=== PATIENT | male | born 1990 | race Caucasian/White ===

== ENCOUNTER 2018-04-16 02:30 | Emergency (ER) | payer SELFPAY ==
[~2018-04-16] VITALS: Ht 167.6 cm; Wt 79.4 kg
--- NOTE | 2018-04-16 02:30 | NUR ---
PT HAIR ALS. TAKEN TO BED 10
[2018-04-16 02:42] VITALS: BP 117/80
--- NOTE | 2018-04-16 02:47 | NUR ---
PT TO ED BIBA FOR ETOH INTOXICATION. UPON ARRIVAL PT COMABTIVE AND AGITATED. NO TRAUMA OR INJURIES NOTED. PT PLACED INTO BED, PENDING MD GAMEZ. SECURITY AT BEDSIDE.
[2018-04-16] MEDS ORDERED: diphenhydrAMINE 50 MG/ML VIAL IM ONE (02:50)
[2018-04-16] MEDS ORDERED: LORazepam 2 MG/ML VIAL IM ONE (02:50)
[2018-04-16] MEDS ORDERED: HALOPERIDOL IM 5 MG/ML VIAL IM ONE (02:50)
--- NOTE | 2018-04-16 02:52 | NUR ---
Dr. Sargent evaluating patient at bedside.
[2018-04-16] MEDS ORDERED: NACL 0.9% 1,000 ML IV ONE ×2 (03:05→03:55)
--- NOTE | 2018-04-16 03:12 | NUR ---
EKG PERFORMED AT BEDSIDE
[2018-04-16 03:20] LABS: BASOPHILS % (AUTO) 0.5 % (0.0-2.0); EOSINOPHILS % (AUTO) 0.2 % (0.0-4.0); HEMATOCRIT 47.4 % (36-52); HEMOGLOBIN 15.8 g/dL (12.0-18.0); LYMPHOCYTES # (AUTO) 2.2 K/uL (2.0-11.5); LYMPHOCYTES % (AUTO) 26.7 % (20.5-51.1); MEAN CORPUSCULAR HEMOGLOBIN 31 pg (27-31); MEAN CORPUSCULAR HGB CONC 33 g/dL (33-37); MEAN CORPUSCULAR VOLUME 92.8 fL (80-94); MONOCYTES # (AUTO) 0.3 K/uL (0.8-1.0); NEUTROPHILS # (AUTO) 5.8 K/uL (1.8-7.7); NEUTROPHILS % (AUTO) 68.6 % (42.2-75.2); PLATELET COUNT (AUTO) 273 K/uL (140-450); RED CELL DISTRIBUTION WIDTH 13.1 % (11.6-13.7); WHITE BLOOD COUNT (AUTO) 8.4 K/uL (4.8-10.8)
[2018-04-16 03:33] LABS: ANION GAP 12.9 (8-16); CARBON DIOXIDE 26.5 mmol/L (21-32); CHLORIDE 108 mmol/L (98-107); POTASSIUM 3.4 mmol/L (3.5-5.1); SODIUM SERUM 144 mmol/L (136-145)
[2018-04-16 03:34] LABS: CREATININE 0.9 mg/dL (0.7-1.3); GFR ARICAN-AMERICAN 132 mL/min (>90); GLUCOSE 138 mg/dL (74-106); UREA NITROGEN, BLOOD 8 mg/dL (7-18)
[2018-04-16 03:37] LABS: ALBUMIN 4.2 g/dL (3.4-5.0); ASPARTATE AMINOTRANSFERASE 17 U/L (15-37); TOTAL BILIRUBIN 0.4 mg/dL (0.0-1.0)
[2018-04-16 03:38] LABS: ACETAMINOPHEN < 0.5 ug/ml (10-30); SALICYLATE < 2.8 mg/dL (2.8-20.0)
[2018-04-16 03:58] LABS: BARBITURATE, URINE NEGATIVE ng/ml (NEG <=200); BENZODIAZEPINE, URINE NEGATIVE ng/mL (NEG <=200); CANNABINOID, URINE NEGATIVE ng/mL (NEG <=50); COCAINE, URINE NEGATIVE ng/mL (NEG <=300); OPIATE, URINE NEGATIVE ng/mL (NEG <=2000); PHENCYCLIDINE SCREEN,URINE NEGATIVE ng/mL (NEG <=25)
--- NOTE | 2018-04-16 04:37 | NUR ---
TELEPSYCHE INITIATED PER DR. LLOYD
--- NOTE | 2018-04-16 05:18 | NUR ---
TELEPSYCH, DR. SMALLWOOD, CALLED AND SPOKE WITH MARK WHITE
--- NOTE | 2018-04-16 05:21 | NUR ---
TELEPSYCH, DR. SMALLWOOD, SPEAKING WITH PATIENT VIA REMOTE COMMUNICATION
--- NOTE | 2018-04-16 06:47 | NUR ---
PER TELEPSYCH, DR. SMALLWOOD, PT NOT ALERT ENOUGH TO CONTINUE EXAM. RE-EXAMINATION TO TAKE PLACE ONCE PT IS MORE ALERT.
--- NOTE | 2018-04-16 07:19 | NUR ---
REPORT TO MARK KING FOR TRANSFER OF CARE.
--- NOTE | 2018-04-16 07:25 | NUR ---
PT SLEEPING IN BED, HOB ELEVATED. PT. LAYING ON R SIDE. VSS. WILL CONTINUE TO MONITOR. RR EVEN AND UNLABORED. WILL CONTINUE TO MONITOR.
--- NOTE | 2018-04-16 08:35 | NUR ---
Note carmela in EDM - 04/16/18 at 0836 by [facility] PT. SLEEPING , VSS. GOB ELEVATED. JACI PHELPS MADE AWARE. SAFETY PRECAUTIONS IN PLACE. WILL CONTINUE TO MONITOR.
--- NOTE | 2018-04-16 08:36 | NUR ---
PT. SLEEPING , VSS. HOB ELEVATED. ER MADE AWARE. SAFETY PRECAUTIONS IN PLACE. WILL CONTINUE TO MONITOR.
--- NOTE | 2018-04-16 09:37 | NUR ---
PT. AWAKE AND ABLE TO SPEAK IN FULL AND COMPLETE SENTENCES. PROVIDED WITH APPLE JUICE AND CRACKERS. TOLERATED WELL. TELEPSYCH CONSULT REQUEST SENT AT THIS TIME.
--- NOTE | 2018-04-16 10:16 | NUR ---
DR SMALLWOOD PSYCHIATRIST STATED " AT THIS TIME HE IS NOT SUICIDAL, HE IS OKAY TO BE DISCHARGED AND HAVE OUTPATIENT TREATMENT FOR SUBSTANCE ABUSE. ER MD SANTOS MADE AWARE.
[2018-04-16 10:33] VITALS: BP 100/50
--- NOTE | 2018-04-16 10:33 | NUR ---
Patient discharged with v/s stable. Written and verbal after care instructions given and explained. Patient verbalized understanding. Ambulatory with steady gait. All questions addressed prior to discharge. PROVIDED WITH A SUBSTANCE ABUSE PACKET.Advised to follow up with PMD. PT WAITING IN LOBBY FOR TAXI AT THIS TIME.
== END 2018-04-16 10:33 | disposition home or self-care (01) ==
LOC: MED 02:30
DX: F10.129 Alcohol abuse with intoxication, unspecified (principal); F32.9 Major depressive disorder, single episode, unspecified; Y90.6 Blood alcohol level of 120-199 mg/100 ml
CPT/HCPCS: 36415; 80053; 80305; 85025; 93005; 96372; 99284; G0480; G0482; J1200; J1630; J2060; J7030

== ENCOUNTER 2019-03-02 18:07 | Emergency (ER) | payer SELFPAY ==
[~2019-03-02] VITALS: Ht 167.6 cm; Wt 79.4 kg
[2019-03-02 18:23] VITALS: BP 131/68
--- NOTE | 2019-03-02 18:33 | NUR ---
PT TRIAGED WITH PT'S SISTER. EXPLAINED THAT ER BEDS ARE FULL AT THIS TIME AND AWAITING BED AVAILABILITY. PT STATED THAT HE IS NOT WILLING TO WAIT FOR BED AVAILABILITY. PT IS AOX4 AND AMBULATORY WITH STEADY GAIT. PT INSTRUCTED TO COME BACK FROM WORSENING SYMPTOMS AND FOLLOW UP WITH PCP. PT VERBALIZED UNDERSTANDING.
== END 2019-03-02 18:35 | disposition left against medical advice (07) ==
LOC: MED 18:07
DX: Z53.21 Procedure and treatment not carried out due to patient leaving prior to being seen by health care provider (principal); R56.9 Unspecified convulsions

== ENCOUNTER 2020-02-06 22:31 | Emergency (ER) | payer SELFPAY ==
[~2020-02-06] VITALS: Ht 162.6 cm; Wt 84.4 kg
[2020-02-07 01:05] VITALS: BP 134/73
--- NOTE | 2020-02-07 01:28 | NUR ---
PT AMBULATED TO BED 11
--- NOTE | 2020-02-07 01:52 | NUR ---
PT HAS A LARGE ABSCESS/CYST BEHIND HIS RIGHT EAR X 2 WEEKS. AREA IS RED AND SWOLLEN, SKIN IN TACT NO DRAINAGE. VERY PAINFUL WHEN TOUCHED. PT AFEBRILE. PT PLACED IN BED WITH SIDERAIL UP X 1. NKA NO HX
[2020-02-07] MEDS ORDERED: LIDOCAINE MPF 1% 10 MG/ML VIAL INJ ONE (02:35)
--- NOTE | 2020-02-07 02:47 | NUR ---
AT BEDSIDE. LACERATION TRAY SET UP AND 6 BLADE AT BEDSIDE
[2020-02-07] MEDS ORDERED: CLINDAMYCIN 150 MG CAP PO SCH (02:55)
[2020-02-07] MEDS ORDERED: HYDROcodone/APAP 5/325 MG 1 TAB TAB PO SCH (02:55)
--- NOTE | 2020-02-07 02:55 | NUR ---
DRESSING APPLIED TO RIGHT EAR. EAR HAD PACKING PLACED WELL
[2020-02-07] MEDS ORDERED: CLINDAMYCIN 150 MG CAP ONE (02:58)
[2020-02-07] MEDS ORDERED: HYDROcodone/APAP 5/325 MG 1 TAB TAB ONE (02:59)
--- NOTE | 2020-02-07 03:03 | NUR ---
Patient discharged with v/s stable. Written and verbal after care instructions given and explained. Patient alert, oriented and verbalized understanding of instructions. Ambulatory with steady gait. All questions addressed prior to discharge. ID band removed. Patient advised to follow up with PMD. Rx of NORCO, CLINDAMYCIN, KEFLEX, AND MOTRIN given. Patient educated on indication of medication including possible reaction and side effects. Opportunity to ask questions provided and answered.
[2020-02-07 03:09] VITALS: BP 134/73
== END 2020-02-07 03:03 | disposition home or self-care (01) ==
LOC: MED 22:31
DX: H60.00 Abscess of external ear, unspecified ear (principal); L02.416 Cutaneous abscess of left lower limb; Z79.899 Other long term (current) drug therapy
CPT/HCPCS: 99283; J2001

== ENCOUNTER 2022-01-28 01:51 | Emergency (ER) | payer SELFPAY ==
[~2022-01-28] VITALS: Ht 165.1 cm; Wt 89.4 kg
[2022-01-28 02:05] VITALS: BP 147/83
--- NOTE | 2022-01-28 02:09 | NUR ---
PT TO LOBBY
[2022-01-28] MEDS ORDERED: LIDOCAINE 1% 500 MG/ 50 ML VIAL INJ ONE (03:30)
[2022-01-28] MEDS ORDERED: LIDOCAINE MPF 1% 5 ML ONE (03:53)
[2022-01-28] MEDS ORDERED: SULF-58 PO (04:22)
== END 2022-01-28 04:29 | disposition home or self-care (01) ==
LOC: MED 01:51
DX: L02.31 Cutaneous abscess of buttock (principal); Z79.899 Other long term (current) drug therapy; Z98.890 Other specified postprocedural states
CPT/HCPCS: 10060; 99283; J2001

== ENCOUNTER 2022-02-15 19:39 | Emergency (ER) | payer SELFPAY ==
[~2022-02-15] VITALS: Ht 167.6 cm; Wt 88.5 kg
[~2022-02-15 19:39] MED LIST: SULF-58 PO
[2022-02-15 20:07] VITALS: BP 134/60
--- NOTE | 2022-02-15 20:12 | NUR ---
PT TO BED 09.
--- NOTE | 2022-02-15 20:16 | NUR ---
Patient BIB by family from home. C/O foreign body x today. Patient reported, possible small piece of rock got inside his right eye. A/O,X4, right eye pain, pain rate 2/10, redness.
[2022-02-15] MEDS ORDERED: TETRACAINE HCL/PF 0.5% OPTH 4 ML BTL OP ONE (20:35)
--- NOTE | 2022-02-15 21:46 | NUR ---
Dr. Hollis examining patient.
[2022-02-15] MEDS ORDERED: IBUP-2213 PO (21:54)
[2022-02-15] MEDS ORDERED: OFLO10SO2 RIGHT EYE (21:55)
[2022-02-15 22:04] VITALS: BP 128/60
--- NOTE | 2022-02-15 22:04 | NUR ---
Patient discharged with v/s stable. Written and verbal after care instructions given and explained. Patient alert, oriented and verbalized understanding of instructions. Carried with steady gait. All questions addressed prior to discharge. ID band removed. Patient advised to follow up with PMD. Rx of Ibuprofen and Ofloxacin given. Patient educated on indication of medication including possible reaction and side effects. Opportunity to ask questions provided and answered.
== END 2022-02-15 22:04 | disposition home or self-care (01) ==
LOC: MED 19:39
DX: T15.01XA Foreign body in cornea, right eye, initial encounter (principal)
CPT/HCPCS: 65205; 90471; 90715; 99284

== ENCOUNTER 2023-01-31 19:54 | Emergency (ER) | payer MEDICAID ==
[~2023-01-31] VITALS: Ht 167.6 cm; Wt 83.9 kg
[~2023-01-31 19:54] MED LIST changes: +IBUP-2213 PO; +OFLO10SO2 RIGHT EYE
[2023-01-31 20:35] VITALS: BP 161/94; PULSE 151; RESP 16; TEMP 98.9; O2SAT 100
[2023-01-31 22:20] VITALS: BP 141/90; PULSE 141; RESP 16; TEMP 98.9; O2SAT 100
[2023-01-31] MEDS ORDERED: KETOROLAC 30 MG/ML VIAL IVP ONE (22:30)
[2023-01-31] MEDS ORDERED: NACL 0.9% 1,000 ML IV ONE (22:30)
[2023-01-31] MEDS ORDERED: LIDOCAINE MPF 1% 10 MG/ML VIAL INJ ONE (22:30)
[2023-01-31 22:45] LABS: BASOPHILS # (AUTO) 0.1 K/uL (0.00-0.22); BASOPHILS % (AUTO) 0.4 % (0.0-2.0); EOSINOPHILS % (AUTO) 0.1 % (0.0-4.0); HEMATOCRIT 47.4 % (36-52); LYMPHOCYTES # (AUTO) 1.6 K/uL (2.0-11.5); LYMPHOCYTES % (AUTO) 12.3 % (20.5-51.1); MEAN CORPUSCULAR HEMOGLOBIN 31 pg (27-31); MEAN CORPUSCULAR HGB CONC 34 g/dL (33-37); MEAN CORPUSCULAR VOLUME 92.3 fL (80-94); MONOCYTES # (AUTO) 0.8 K/uL (0.8-1.0); NEUTROPHILS # (AUTO) 10.4 K/uL (1.8-7.7); NEUTROPHILS % (AUTO) 81.2 % (42.2-75.2); PLATELET COUNT (AUTO) 287 K/uL (140-450); RED BLOOD CELL COUNT(AUTO) 5.13 MIL/uL (4.20-6.10); WHITE BLOOD COUNT (AUTO) 12.8 K/uL (4.8-10.8)
[2023-01-31 22:58] LABS: ANION GAP 12.4 (8-16); CALCIUM 8.6 mg/dL (8.5-10.1); CARBON DIOXIDE 28.7 mmol/L (21-32); CREATININE 0.9 mg/dL (0.6-1.3); POTASSIUM 3.1 mmol/L (3.5-5.1)
== END 2023-01-31 22:48 | disposition left against medical advice (07) ==
LOC: MED 19:54
DX: L02.214 Cutaneous abscess of groin (principal); L05.01 Pilonidal cyst with abscess; R00.0 Tachycardia, unspecified; Z79.2 Long term (current) use of antibiotics; Z79.1 Long term (current) use of non-steroidal anti-inflammatories (NSAID)
CPT/HCPCS: 36415; 80048; 85025; 99283

== ENCOUNTER 2023-09-13 19:05 | Emergency (ER) | payer SELFPAY ==
[~2023-09-13] VITALS: Ht 167.6 cm; Wt 87.5 kg
[2023-09-13 19:17] VITALS: BP 122/73; PULSE 89; RESP 18; TEMP 98.1; O2SAT 96
[2023-09-13] MEDS: LIDOCAINE MPF 1% 10 MG/ML VIAL INJ ONE (21:17)
[2023-09-13] MEDS ORDERED: IBUP-2213 PO (21:55)
[2023-09-13] MEDS ORDERED: SULF-59 PO (21:55)
== END 2023-09-13 22:04 | disposition home or self-care (01) ==
LOC: MED 19:05
DX: H60.02 Abscess of left external ear (principal); Z79.1 Long term (current) use of non-steroidal anti-inflammatories (NSAID); Z79.2 Long term (current) use of antibiotics; Z79.899 Other long term (current) drug therapy
CPT/HCPCS: 10060; 99284; J2001